=== PATIENT | female | born 1945 | race Caucasian/White ===

== ENCOUNTER 2022-02-07 11:15 | Inpatient (IN) | payer MEDICARE ==
[~2022-02-07] VITALS: Ht 172.7 cm; Wt 95.0 kg
[~2022-02-07 11:15] MED LIST: ALOG1TAB PO; DULO60CA65 PO; GLIM2TAB6 PO; INSU100I29 SQ; MELO-102 PO; OXYB5TAB16 PO; ROSU10TA2 PO; THY60T PO; WEL625T PO
[2022-02-07] MEDS ORDERED: Insulin Reg/NS 100units/100mL 100 ML IV PRN (11:30)
[2022-02-07] MEDS ORDERED: normal saline 1000ml 1,000 ML IV ONE ×3 (11:30→13:15)
[2022-02-07] MEDS ORDERED: LIDOcaine 2% 10ml TOPICAL JELLY (Urojet) TP ONE (11:40)
[2022-02-07] MEDS ORDERED: LISI5TAB22 PO (11:45)
[2022-02-07] MEDS ORDERED: LANTUS SQ (11:45)
[2022-02-07] MEDS ORDERED: GABA-530 PO (11:45)
[2022-02-07] MEDS ORDERED: OXCA150T14 PO (11:45)
[2022-02-07] MEDS ORDERED: COLE625T13 PO (11:45)
[2022-02-07] MEDS ORDERED: ONDA8TAB13 SL (11:45)
[2022-02-07] MEDS ORDERED: DULO60CA65 PO (11:45)
[2022-02-07] MEDS ORDERED: GLIM4TAB7 PO (11:45)
[2022-02-07] MEDS ORDERED: THYR30TA2 PO (11:45)
[2022-02-07] MEDS ORDERED: ROSU40TA22 PO (11:45)
[2022-02-07] MEDS ORDERED: INSU100I8 SQ (11:45)
[2022-02-07 12:37] LABS: CLARITY,URINE TURBID (Clear); COLOR,URINE YELLOW (Yellow); GLUCOSE, URINE >=1000 mg/dl (Neg); KETONES,URINE >=80 mg/dl (Neg); LEUKOCYTE ESTERASE ,URINE SMALL (Neg); NITRITES, URINE NEGATIVE (Neg); OCCULT BLOOD,URINE LARGE (Neg); PH,URINE 5.5 (4.8-8.0); PROTEIN,URINE 100 mg/dl (Neg); UROBILINOGEN,URINE 0.2 E.U/dL (0.2-1.0)
[2022-02-07 12:39] LABS: UA COLLECTION TYPE FOLEY CATH; URINE HCG NEGATIVE (NEG)
[2022-02-07 13:00] LABS: BASOPHILS # (AUTO) 0.1 X10'3 (0-0.2); MEAN PLATELET VOLUME 8.2 FL (7.4-10.4); MONOCYTES # (AUTO) 0.7 X10'3 (0-0.9)
[2022-02-07 13:01] LABS: BACTERIA,URINE FEW /HPF (Neg); MUCUS STRANDS NONE SEEN /LPF (Neg); SQUAMOUS EPITHELIAL CELL,UR NONE SEEN /LPF (FEW); WBC,URINE TNTC /HPF (0-4); YEAST MANY /HPF (NEGATIVE)
[2022-02-07 13:02] LABS: BASOPHILS % (AUTO) 0.5 % (0-1); EOSINOPHILS % (AUTO) 0.1 % (0-6); HEMATOCRIT 44.6 % (35.0-45.0); LYMPHOCYTES # (AUTO) 1.1 X10'3 (1.1-4.8); LYMPHOCYTES % (AUTO) 7.8 % (21-51); MEAN CORPUSCULAR HEMOGLOBIN 27.5 PG (27.0-31.0); MEAN CORPUSCULAR HGB CONC 31.4 g/dL (33.0-36.5); MEAN CORPUSCULAR VOLUME 87.6 FL (78-98); MONOCYTES % (AUTO) 4.9 % (2-12); NEUTROPHILS # (AUTO) 12.6 X10'3 (1.8-7.7); NEUTROPHILS % (AUTO) 86.7 % (42-75); PLATELET COUNT 740 X10'3 (140-440); RED CELL DISTRIBUTION WIDTH 14.5 % (11.5-14.5); WHITE BLOOD COUNT 14.5 X10'3 (4.5-11.0)
[2022-02-07 13:07] LABS: ALBUMIN 2.7 G/DL (3.4-5.0); ANION GAP 29 (8-16); BILIRUBIN,TOTAL 0.4 MG/DL (0.1-1.0); BLOOD UREA NITROGEN 20 MG/DL (7-18); BUN/CREATININE RATIO 12.4 (6.6-38.0); CALCIUM 8.2 MG/DL (8.5-10.1); CHLORIDE 98 MMOL/L (99-107); CREATININE 1.61 MG/DL (0.40-0.90); SODIUM 135 MMOL/L (135-145); TOTAL PROTEIN 7.6 G/DL (6.4-8.2); eGFR 31 ML/MIN
[2022-02-07 13:08] LABS: ALANINE AMINOTRANSFERASE 13 U/L (12-78); ALBUMIN/GLOBULIN RATIO 0.6 (1.1-1.5); ALKALINE PHOSPHATASE 138 IU/L (46-116); ASPARTATE AMINO TRANSFERASE 13 U/L (10-37); LIPASE 109 U/L (73-393)
[2022-02-07 13:09] LABS: GLUCOSE 459 MG/DL (70-104); TOTAL CARBON DIOXIDE 7.8 MMOL/L (24-32)
[2022-02-07] MEDS ORDERED: cefTRIAXone 1g/NS 100ml IVPB 100 ML IV ONE (13:15)
[2022-02-07] MEDS ORDERED: ondansetron/PF 4mg/2ml inj IV ONE (13:55)
[2022-02-07 13:58] LABS: ABG BASE EXCESS -21.6 mmol/L (-2.0-2.0); ABG HCO3 4.9 mmol/L (22.0-26.0); ABG OXYGEN SATURATION 98.1 % (94-97); ABG PCO2 (T) 14.2 mmHg (32.0-45.0); ABG PO2 (T) 119.6 mmHg (75.0-100.0); ALLEN'S TEST POSITIVE; FCOHb 0.3 % (0.0-3.9); FMetHb 0.3 % (0.0-1.5); FO2Hb 97.5 % (94-97); PATIENT TEMPERATURE 36.4; TOTAL HEMOGLOBIN 13.7 G/dl (12.0-16.0)
[2022-02-07] MEDS ORDERED: morphine 4 MG/ML inj SYRINge IV ONE (14:00)
--- NOTE | 2022-02-07 14:19 | NUR ---
RECEPTION AT BEDSIDE. CALL LIGHT WITHIN REACH.
[2022-02-07] MEDS ORDERED: insulin regular, human U-100 3ml vial - multi-dose IV PRN (14:25)
[2022-02-07] MEDS ORDERED: potassium Cl 20 mEq SR tablet PO PRN ×3 (14:25→14:30)
[2022-02-07] MEDS ORDERED: Neutra Phos packet PO PRN ×2 (14:25→14:30)
[2022-02-07] MEDS ORDERED: sodium bicarbonate (8.4%) inj. 50 MEQ in dextrose 5% water 500ml 250 ML IV PRN (14:25)
[2022-02-07] MEDS ORDERED: potassium CL 20mEq in D5-1/2NS 1,000 ML IV PRN (14:25)
[2022-02-07] MEDS ORDERED: Insulin Reg/NS 100units/100mL 100 ML IV SCH (14:25)
[2022-02-07] MEDS ORDERED: potassium Cl 40MEQ/1/2NS 520ml 520 ML IV PRN ×2 (14:25)
[2022-02-07] MEDS ORDERED: sodium phosphate inj. 30 MMOL in dextrose 5%-water 250 ML IV PRN ×2 (14:25→14:30)
[2022-02-07] MEDS ORDERED: sodium phosphate inj. 15 MMOL in dextrose 5%-water 250 ML IV PRN ×2 (14:25→14:30)
[2022-02-07] MEDS ORDERED: sodium bicarbonate (8.4%) inj. 100 MEQ in dextrose 5% water 500ml 500 ML IV PRN (14:25)
[2022-02-07] MEDS ORDERED: acetaminophen 650mg rectal suppository RC PRN (14:30)
[2022-02-07] MEDS ORDERED: magnesium 2GM in 50ml NS 50 ML IV PRN (14:30)
[2022-02-07] MEDS ORDERED: albuterol 2.5 MG/3 ML nebule NEB PRN (14:30)
[2022-02-07] MEDS ORDERED: acetaminophen 325mg tablet PO PRN (14:30)
[2022-02-07] MEDS ORDERED: magnesium 4gm in 100ml NS 100 ML IV PRN (14:30)
[2022-02-07] MEDS ORDERED: magnesium hydroxide 30ml (MOM) UD suspension PO PRN (14:30)
[2022-02-07] MEDS ORDERED: potassium CL 10mEq/100ml bag 100 ML IV PRN (14:30)
[2022-02-07] MEDS: normal saline 1000ml 1,000 ML IV SCH ×3 (14:37→22:02)
[2022-02-07] MEDS: K and/or MAG REPLACEMENT MC SCH (15:00)
[2022-02-07 15:27] LABS: ALBUMIN 2.6 G/DL (3.4-5.0); ANION GAP 27 (8-16); BLOOD UREA NITROGEN 21 MG/DL (7-18); BUN/CREATININE RATIO 13.7 (6.6-38.0); CALCIUM 8.5 MG/DL (8.5-10.1); CHLORIDE 104 MMOL/L (99-107); CREATININE 1.53 MG/DL (0.40-0.90); GLUCOSE 241 MG/DL (70-104); PHOSPHORUS 3.7 MG/DL (2.3-4.5); SODIUM 140 MMOL/L (135-145); eGFR 33 ML/MIN
[2022-02-07 15:28] LABS: TOTAL CARBON DIOXIDE 8.7 MMOL/L (24-32)
[2022-02-07] MEDS: potassium CL 20mEq in D5-1/2NS 1,000 ML IV SCH ×3 (15:43→21:07)
--- NOTE | 2022-02-07 15:45 | NUR ---
Changed IVF per protocol to D5 1/2NS with 20mEq KCL @250ml/hr.
[2022-02-07 16:52] LABS: ALBUMIN 2.4 G/DL (3.4-5.0); ANION GAP 23 (8-16); BLOOD UREA NITROGEN 20 MG/DL (7-18); BUN/CREATININE RATIO 13.2 (6.6-38.0); CALCIUM 8.3 MG/DL (8.5-10.1); CHLORIDE 107 MMOL/L (99-107); CREATININE 1.52 MG/DL (0.40-0.90); GLUCOSE 200 MG/DL (70-104); PHOSPHORUS 3.3 MG/DL (2.3-4.5); POTASSIUM 3.5 MMOL/L (3.5-5.1); SODIUM 140 MMOL/L (135-145); eGFR 33 ML/MIN
[2022-02-07 16:54] LABS: TOTAL CARBON DIOXIDE 10.5 MMOL/L (24-32)
[2022-02-07 19:07] LABS: ALBUMIN 2.1 G/DL (3.4-5.0); ANION GAP 25 (8-16); BLOOD UREA NITROGEN 18 MG/DL (7-18); BUN/CREATININE RATIO 12.8 (6.6-38.0); CALCIUM 7.6 MG/DL (8.5-10.1); CHLORIDE 109 MMOL/L (99-107); CREATININE 1.41 MG/DL (0.40-0.90); GLUCOSE 169 MG/DL (70-104); SODIUM 142 MMOL/L (135-145); eGFR 36 ML/MIN
[2022-02-07 19:09] LABS: POTASSIUM 4.3 MMOL/L (3.5-5.1)
[2022-02-07 19:12] LABS: TOTAL CARBON DIOXIDE 8.1 MMOL/L (24-32)
[2022-02-07] MEDS: heparin, porcine 5000 units/ml vial SQ SCH (19:56)
[2022-02-07] MEDS: docusate sod 100mg capsule PO SCH (19:56)
[2022-02-07] MEDS ORDERED: K and/or MAG REPLACEMENT MC SCH (20:00)
[2022-02-07] MEDS ORDERED: famotidine/PF 10 mg/ml inj IV SCH (20:00)
[2022-02-07] MEDS: acetaminophen 325mg tablet PO PRN (20:03)
--- NOTE | 2022-02-07 20:07 | NUR ---
Pt pink, alert, no acute/resp distress. PIV sites c/d/i s complication or adverse reaction. Pt supine, moves self PRN for comfort.
[2022-02-07] MEDS ORDERED: sodium bicarbonate (8.4%) 1 mEq/ml syringe IV ONE (20:35)
--- NOTE | 2022-02-07 20:51 | NUR ---
VOR DR MANCIA, 2 AMPS SODIUM BICARB PIV NOW, DRAW ABG, CALL THE FINISHER MACHINE ONSITE CASE MANAGER WITH RESULTS OF ABG, DR IGNACIO. VOR DR IGNACIO, DO NOT GIVE 2 AMPS SODIUM BICARBONATE. DO REDRAW CMP AND ABG NOW AND CALL WITH RESULTS. IF GLUCOSE READING DROPS FROM THE PREVIOUS 165MG/DL LOWER INSULIN DRIP DOWN TO 3 UNITS PER HOUR.
[2022-02-07 21:11] LABS: ABG BASE EXCESS -12.9 mmol/L (-2.0-2.0); ABG HCO3 12.1 mmol/L (22.0-26.0); ABG OXYGEN SATURATION 97.8 % (94-97); ABG PCO2 (T) 25.7 mmHg (32.0-45.0); ABG PO2 (T) 107.1 mmHg (75.0-100.0); FCOHb 0.3 % (0.0-3.9); FMetHb 0.2 % (0.0-1.5); FO2Hb 97.3 % (94-97)
--- NOTE | 2022-02-07 21:14 | NUR ---
ABG DRAWN BY RT, PT JANELLE WELL, REMAINED PINK. CMP DRAWN BY LAB, PT JANELLE. WELL REMAINED PINK. PIV SITES C/D/I S COMPLICATION.
[2022-02-07 21:35] LABS: ALANINE AMINOTRANSFERASE 8 U/L (12-78); ALBUMIN 1.9 G/DL (3.4-5.0); ALBUMIN/GLOBULIN RATIO 0.5 (1.1-1.5); ALKALINE PHOSPHATASE 95 IU/L (46-116); ANION GAP 20 (8-16); ASPARTATE AMINO TRANSFERASE 11 U/L (10-37); BILIRUBIN,TOTAL 0.3 MG/DL (0.1-1.0); BLOOD UREA NITROGEN 16 MG/DL (7-18); CALCIUM 6.5 MG/DL (8.5-10.1); CHLORIDE 110 MMOL/L (99-107); CREATININE 1.23 MG/DL (0.40-0.90); GLUCOSE 186 MG/DL (70-104); POTASSIUM 3.4 MMOL/L (3.5-5.1); SODIUM 141 MMOL/L (135-145); TOTAL PROTEIN 5.6 G/DL (6.4-8.2); eGFR 42 ML/MIN
[2022-02-07] MEDS ORDERED: ketorolac trometh. 30mg/ml inj. IV ONE (21:50)
--- NOTE | 2022-02-07 21:52 | NUR ---
VORB Dr Davis, Toradol 30mg PIV now for headache. Keep Insulin at 5u/hr. No further orders at this time.
--- NOTE | 2022-02-07 23:06 | NUR ---
Pt states SUTTON has resolved after toradol given. PIV sites c/d/i s complication. Pt denies nausea, or other adverse side effects. Bed in the lowest position, rail 2/2 up and locked, wheels locked, call lin in reach.
[2022-02-08] MEDS: potassium CL 20mEq in D5-1/2NS 1,000 ML IV SCH ×3 (02:16→07:46)
--- NOTE | 2022-02-08 02:30 | NUR ---
Insulin lowered from 5 to 3 units per hour with down trending glucose of [address] Davis.
--- NOTE | 2022-02-08 03:19 | NUR ---
20 PIV left upper arm not infusing. PIV d/c fully intact. 22G PIV started right forearm x 2 attempts. Flushed well with 10ccNS s complication. IVF infusing well s complication.
--- NOTE | 2022-02-08 03:58 | NUR ---
ANETA Davis, continue insulin drip at 3 units per hour, send a CMP now. May reduce insulin to 1 unit per hour if glucose continues to fall. Keep D51/2NS with 20meq KCL running at 250cc/hr.
[2022-02-08] MEDS: normal saline 1000ml 1,000 ML IV SCH ×2 (04:10→05:50)
--- NOTE | 2022-02-08 04:19 | NUR ---
Pt pink, alert, eating sugar free orange jello. PIV sites, both right arm, c/d/i s complication or adverse. Bed in lowest position, rail 2/2 up, call lin in reach, wheels locked. Pt. laying supine, pt able to reposition prn.
[2022-02-08 04:21] LABS: ALANINE AMINOTRANSFERASE 11 U/L (12-78); ALBUMIN/GLOBULIN RATIO 0.5 (1.1-1.5); ALKALINE PHOSPHATASE 95 IU/L (46-116); ANION GAP 10 (8-16); ASPARTATE AMINO TRANSFERASE 13 U/L (10-37); BILIRUBIN,TOTAL 0.2 MG/DL (0.1-1.0); BLOOD UREA NITROGEN 14 MG/DL (7-18); BUN/CREATININE RATIO 10.4 (6.6-38.0); CALCIUM 7.2 MG/DL (8.5-10.1); CHLORIDE 110 MMOL/L (99-107); CREATININE 1.35 MG/DL (0.40-0.90); GLUCOSE 106 MG/DL (70-104); MAGNESIUM 1.4 MG/DL (1.5-2.4); PHOSPHORUS 2.5 MG/DL (2.3-4.5); POTASSIUM 3.5 MMOL/L (3.5-5.1); SODIUM 139 MMOL/L (135-145); TOTAL CARBON DIOXIDE 18.6 MMOL/L (24-32); TOTAL PROTEIN 5.8 G/DL (6.4-8.2); eGFR 38 ML/MIN
--- NOTE | 2022-02-08 05:51 | NUR ---
Pt pink, alert, no acute/resp distress. PIV sites c/d/i s complication or adverse reaction. Pt supine, moves self PRN for comfort. Bed in lowest position, wheels locked, rail 2/2 up, call lin in reach. Handoff report to dayshift RN
--- NOTE | 2022-02-08 07:15 | NUR ---
Hop Worker called with plan to check CMP; give glargine insulin; reassess after results of CMP.
--- NOTE | 2022-02-08 07:25 | NUR ---
Telemedicine monitor placed at bedside per rfid engineer request.
[2022-02-08 07:40] LABS: ALANINE AMINOTRANSFERASE 10 U/L (12-78); ALBUMIN 1.7 G/DL (3.4-5.0); ALBUMIN/GLOBULIN RATIO 0.5 (1.1-1.5); ALKALINE PHOSPHATASE 81 IU/L (46-116); ANION GAP 7 (8-16); ASPARTATE AMINO TRANSFERASE 12 U/L (10-37); BILIRUBIN,TOTAL 0.2 MG/DL (0.1-1.0); BLOOD UREA NITROGEN 13 MG/DL (7-18); BUN/CREATININE RATIO 10.2 (6.6-38.0); CALCIUM 7.1 MG/DL (8.5-10.1); CHLORIDE 112 MMOL/L (99-107); CREATININE 1.27 MG/DL (0.40-0.90); GLUCOSE 123 MG/DL (70-104); POTASSIUM 3.6 MMOL/L (3.5-5.1); SODIUM 137 MMOL/L (135-145); TOTAL CARBON DIOXIDE 17.9 MMOL/L (24-32); TOTAL PROTEIN 5.1 G/DL (6.4-8.2); eGFR 41 ML/MIN
--- NOTE | 2022-02-08 07:54 | NUR ---
Confirmed with patient, she no longer has allergy to glargine insulin/Lantus; confirmed with pharmacist. Per pharmacist, insulin drip will be discontinued at 0900 today.
[2022-02-08] MEDS ORDERED: glucagon, human recombinant 1mg kit SUBCUT PRN (08:00)
[2022-02-08] MEDS ORDERED: DEXTROSE 15 GM of carb/4 tabs (each vial/BOTTLE has 4 tablets) PO PRN ×2 (08:00)
[2022-02-08] MEDS ORDERED: dextrose 50%-water 50ml dispensing syringe IV PRN ×2 (08:00)
[2022-02-08] MEDS: K and/or MAG REPLACEMENT MC SCH (08:00)
[2022-02-08] MEDS: insulin glargine (Lantus) pen - multi-dose SQ SCH (08:11)
[2022-02-08] MEDS: ondansetron/PF 4mg/2ml inj IV PRN ×2 (08:17→14:35)
[2022-02-08] MEDS: cefTRIAXone 1g/NS 100ml IVPB 100 ML IV SCH (09:00)
[2022-02-08] MEDS: docusate sod 100mg capsule PO SCH ×2 (10:37→20:38)
[2022-02-08] MEDS: heparin, porcine 5000 units/ml vial SQ SCH ×2 (10:37→20:38)
--- NOTE | 2022-02-08 12:44 | NUR ---
Spoke with patient's son, Nathan; update given. Patient gave consent to speak with family members regarding her healthcare.
[2022-02-08] MEDS: insulin Lispro (HumaLOG) vial - multi-dose SQ SCH ×3 (13:27→21:57)
[2022-02-08 14:02] LABS: BASOPHILS % (AUTO) 0.5 % (0-1); EOSINOPHILS # (AUTO) 0.4 X10'3 (0-0.9); EOSINOPHILS % (AUTO) 4.8 % (0-6); HEMATOCRIT 43.5 % (35.0-45.0); HEMOGLOBIN 13.9 g/dl (12.0-16.0); LYMPHOCYTES # (AUTO) 1.4 X10'3 (1.1-4.8); LYMPHOCYTES % (AUTO) 18.3 % (21-51); MEAN CORPUSCULAR HEMOGLOBIN 28.2 PG (27.0-31.0); MEAN CORPUSCULAR HGB CONC 32.1 g/dL (33.0-36.5); MEAN PLATELET VOLUME 7.4 FL (7.4-10.4); MONOCYTES # (AUTO) 0.6 X10'3 (0-0.9); MONOCYTES % (AUTO) 8.4 % (2-12); PLATELET COUNT 430 X10'3 (140-440); RED BLOOD COUNT 4.94 X10'6 (4.20-5.60); RED CELL DISTRIBUTION WIDTH 14.7 % (11.5-14.5); WHITE BLOOD COUNT 7.4 X10'3 (4.5-11.0)
[2022-02-08] MEDS: acetaminophen 325mg tablet PO PRN ×2 (14:36→18:48)
--- NOTE | 2022-02-08 15:33 | NUR ---
RELIEVING RN FOR BREAK, PT IS SLEEPING QUIETLY ON BED, RESP EVEN AND UNLABORED, WAITING FOR BED ASSIGNMENT UPSTAIRS
[2022-02-08 17:29] VITALS: BP 154/69
[2022-02-08 18:00] VITALS: BP 155/73
[2022-02-08 22:00] VITALS: BP 113/41
[2022-02-09] MEDS: ondansetron/PF 4mg/2ml inj IV PRN ×4 (01:05→23:35)
[2022-02-09] MEDS: acetaminophen 325mg tablet PO PRN (01:05)
[2022-02-09 02:00] VITALS: BP 152/59
[2022-02-09 06:46] LABS: BASOPHILS % (AUTO) 0.2 % (0-1); EOSINOPHILS # (AUTO) 0.4 X10'3 (0-0.9); EOSINOPHILS % (AUTO) 6.3 % (0-6); HEMATOCRIT 32.2 % (35.0-45.0); HEMOGLOBIN 10.8 g/dl (12.0-16.0); LYMPHOCYTES # (AUTO) 1.8 X10'3 (1.1-4.8); LYMPHOCYTES % (AUTO) 30.1 % (21-51); MEAN CORPUSCULAR HEMOGLOBIN 28.4 PG (27.0-31.0); MEAN CORPUSCULAR HGB CONC 33.5 g/dL (33.0-36.5); MEAN CORPUSCULAR VOLUME 84.9 FL (78-98); MEAN PLATELET VOLUME 7.4 FL (7.4-10.4); MONOCYTES # (AUTO) 0.6 X10'3 (0-0.9); MONOCYTES % (AUTO) 9.8 % (2-12); NEUTROPHILS # (AUTO) 3.2 X10'3 (1.8-7.7); NEUTROPHILS % (AUTO) 53.6 % (42-75); PLATELET COUNT 416 X10'3 (140-440); RED BLOOD COUNT 3.79 X10'6 (4.20-5.60); RED CELL DISTRIBUTION WIDTH 14.3 % (11.5-14.5)
--- NOTE | 2022-02-09 06:58 | NUR ---
Verified pt is to receive both doses of insulin with pharmacist
[2022-02-09 06:59] LABS: MAGNESIUM 2.2 MG/DL (1.5-2.4); POTASSIUM 3.8 MMOL/L (3.5-5.1)
[2022-02-09] MEDS: cefTRIAXone 1g/NS 100ml IVPB 100 ML IV SCH (07:18)
[2022-02-09] MEDS: heparin, porcine 5000 units/ml vial SQ SCH ×2 (07:19→20:04)
[2022-02-09] MEDS: K and/or MAG REPLACEMENT MC SCH (07:19)
[2022-02-09] MEDS: docusate sod 100mg capsule PO SCH ×2 (07:19→20:04)
[2022-02-09] MEDS: insulin glargine (Lantus) pen - multi-dose SQ SCH (08:46)
[2022-02-09] MEDS: insulin Lispro (HumaLOG) vial - multi-dose SQ SCH ×3 (08:49→20:53)
--- NOTE | 2022-02-09 09:25 | NUR ---
Malnutrition/DM consult: Pt admitted w/ DKA and UTI per EMR. A1c currently pending. Pt has reportedly had some nausea and vomiting for the past 3 days and unable to keep food down. Currently on Carb controlled diet w/ 100% intake of first meal, receiving PRN zofran. Pt denies recent wt loss and no signs of muscle or fat wasting observed at bedside. Noted w/ BLE trace edema. At this time pt does not meet minimum criteria for malnutrition. Will continue to monitor. Recs: 1. Continue Carb control diet as tolerated 2. Bowel care per rx 3. Weekly wts 4. Monitor need for DM ed pending A1c Addendum: 02/09/22 at [address]26 [address]rique [address] RD Amended: Links added.
[2022-02-09 09:56] VITALS: BP 156/82
[2022-02-09 12:15] VITALS: BP 140/62
[2022-02-09 12:23] LABS: ALBUMIN 1.8 G/DL (3.4-5.0); ANION GAP 13 (8-16); BLOOD UREA NITROGEN 11 MG/DL (7-18); CHLORIDE 111 MMOL/L (99-107); CREATININE 1.37 MG/DL (0.40-0.90); GLUCOSE 311 MG/DL (70-104); SODIUM 140 MMOL/L (135-145); TOTAL CARBON DIOXIDE 16.5 MMOL/L (24-32); eGFR 37 ML/MIN
[2022-02-09] MEDS ORDERED: heparin, porcine 5000 units/ml vial SQ SCH (12:55)
[2022-02-09] MEDS: gabapentin 100mg capsule PO SCH ×2 (13:00→20:58)
[2022-02-09 13:24] LABS: CHOL/HDL RATIO 2.8 (0.00-4.99); CHOLESTEROL 146 MG/DL (0-200); HDL CHOLESTEROL 53 MG/DL (35-60); LDL CHOLESTEROL 70 MG/DL (50-100); TRIGLYCERIDES 176 MG/DL (20-135)
[2022-02-09] MEDS: sodium bicarbonate (8.4%) inj. 100 MEQ in sodium chloride 0.45% 1,000 ML IV SCH ×2 (13:26→23:35)
[2022-02-09 15:36] VITALS: BP 147/54
--- NOTE | 2022-02-09 16:35 | NUR ---
dc'D F/C. pT. TOLERATED WELL. eXTENSIVE PERICARE PROVIDED. pT EDUCATED ON HOW TO WIPE AND PERSONAL HYGIENE HABITS WHICH SHE WAS RECEPTIVE TO. 1000ML CLOUDY YELLOW OUTPUT.
--- NOTE | 2022-02-09 18:32 | NUR ---
Gave report to Eliseo XAVIER.
[2022-02-09 19:15] VITALS: BP 161/68
[2022-02-09] MEDS: oxcarbazepine 150mg tablet PO SCH (20:04)
[2022-02-10 06:00] VITALS: BP 129/43
[2022-02-10 06:07] LABS: BASOPHILS # (AUTO) 0.1 X10'3 (0-0.2); BASOPHILS % (AUTO) 0.8 % (0-1); EOSINOPHILS # (AUTO) 0.1 X10'3 (0-0.9); EOSINOPHILS % (AUTO) 1.9 % (0-6); HEMATOCRIT 29.6 % (35.0-45.0); LYMPHOCYTES # (AUTO) 2.3 X10'3 (1.1-4.8); LYMPHOCYTES % (AUTO) 29.8 % (21-51); MEAN CORPUSCULAR HGB CONC 33.8 g/dL (33.0-36.5); MEAN CORPUSCULAR VOLUME 82.9 FL (78-98); MEAN PLATELET VOLUME 7.5 FL (7.4-10.4); MONOCYTES # (AUTO) 0.7 X10'3 (0-0.9); MONOCYTES % (AUTO) 8.9 % (2-12); NEUTROPHILS # (AUTO) 4.5 X10'3 (1.8-7.7); NEUTROPHILS % (AUTO) 58.6 % (42-75); PLATELET COUNT 429 X10'3 (140-440); RED BLOOD COUNT 3.57 X10'6 (4.20-5.60); RED CELL DISTRIBUTION WIDTH 14.2 % (11.5-14.5); WHITE BLOOD COUNT 7.6 X10'3 (4.5-11.0)
[2022-02-10 06:24] LABS: MAGNESIUM 1.8 MG/DL (1.5-2.4)
--- NOTE | 2022-02-10 06:53 | NUR ---
Problems reprioritized. Patient report given, questions answered & plan of care reviewed with RAFFY. Addendum: 02/10/22 at 0653 by Gino Ramos RN Amended: Links added.
[2022-02-10] MEDS: gabapentin 100mg capsule PO SCH ×3 (07:49→21:00)
[2022-02-10] MEDS: colesevelam 625mg tablet PO SCH (07:50)
[2022-02-10] MEDS: duloxetine 30mg CAPSULE.DR PO SCH (07:50)
[2022-02-10] MEDS: atorvastatin 20mg tablet PO SCH (07:50)
[2022-02-10] MEDS: docusate sod 100mg capsule PO SCH ×2 (07:50→21:06)
[2022-02-10] MEDS: thyroid, pork 30mg tablet PO SCH (07:50)
[2022-02-10] MEDS: heparin, porcine 5000 units/ml vial SQ SCH ×2 (07:51→21:07)
[2022-02-10] MEDS: oxybutynin 5mg tablet PO SCH (07:51)
[2022-02-10] MEDS: pantoprazole 40mg Tablet.DR PO SCH (07:51)
[2022-02-10] MEDS: cefTRIAXone 1g/NS 100ml IVPB 100 ML IV SCH (07:52)
[2022-02-10] MEDS: potassium Cl 20 mEq SR tablet PO PRN ×2 (07:54→11:06)
[2022-02-10] MEDS: oxcarbazepine 150mg tablet PO SCH ×2 (08:00→21:06)
[2022-02-10] MEDS: lisinopril 5mg tablet PO SCH (08:13)
[2022-02-10] MEDS: insulin Lispro (HumaLOG) vial - multi-dose SQ SCH ×3 (08:29→21:23)
[2022-02-10] MEDS: insulin glargine (Lantus) pen - multi-dose SQ SCH (08:32)
[2022-02-10] MEDS ORDERED: metoclopramide 5 mg/ml inj IV PRN (10:45)
[2022-02-10 11:00] VITALS: BP 132/49
[2022-02-10 12:21] LABS: ALBUMIN 1.7 G/DL (3.4-5.0); BLOOD UREA NITROGEN 10 MG/DL (7-18); BUN/CREATININE RATIO 7.6 (6.6-38.0); CALCIUM 7.7 MG/DL (8.5-10.1); CREATININE 1.31 MG/DL (0.40-0.90); GLUCOSE 136 MG/DL (70-104); TOTAL CARBON DIOXIDE 21.5 MMOL/L (24-32); eGFR 39 ML/MIN
[2022-02-10 13:07] LABS: ANION GAP 12 (8-16); CHLORIDE 108 MMOL/L (99-107); SODIUM 141 MMOL/L (135-145)
--- NOTE | 2022-02-10 13:29 | NUR ---
f/u 02/10: Noted A1c "above assay range." TC to Lab to clarify, they state it likely means the value is greater than 14, though was not able to get a clear answer. Provided pt w/ written and verbal DM ed w/ RD contact information. Addendum: 02/10/22 at [address] Amended: Links added.
[2022-02-10 15:00] VITALS: BP 103/65
[2022-02-10 19:30] VITALS: BP 113/46
[2022-02-10] MEDS: K and/or MAG REPLACEMENT MC SCH (21:02)
[2022-02-11 06:00] VITALS: BP 133/57
--- NOTE | 2022-02-11 06:10 | NUR ---
Problems reprioritized. Patient report given, questions answered & plan of care reviewed with RAFFY. Addendum: 02/11/22 at 0610 by Gino Ramos RN Amended: Links added.
[2022-02-11] MEDS: cefTRIAXone 1g/NS 100ml IVPB 100 ML IV SCH (07:54)
[2022-02-11] MEDS: docusate sod 100mg capsule PO SCH (07:54)
[2022-02-11] MEDS: atorvastatin 20mg tablet PO SCH (07:54)
[2022-02-11] MEDS: heparin, porcine 5000 units/ml vial SQ SCH (07:55)
[2022-02-11] MEDS: duloxetine 30mg CAPSULE.DR PO SCH (07:55)
[2022-02-11] MEDS: lisinopril 5mg tablet PO SCH (07:55)
[2022-02-11] MEDS: colesevelam 625mg tablet PO SCH (07:56)
[2022-02-11] MEDS: oxcarbazepine 150mg tablet PO SCH (07:56)
[2022-02-11] MEDS: gabapentin 100mg capsule PO SCH (07:56)
[2022-02-11] MEDS: pantoprazole 40mg Tablet.DR PO SCH (08:02)
[2022-02-11] MEDS: oxybutynin 5mg tablet PO SCH (08:02)
[2022-02-11 08:10] LABS: BASOPHILS # (AUTO) 0.1 X10'3 (0-0.2); EOSINOPHILS # (AUTO) 0.2 X10'3 (0-0.9); EOSINOPHILS % (AUTO) 3.5 % (0-6); HEMATOCRIT 30.1 % (35.0-45.0); LYMPHOCYTES # (AUTO) 2.2 X10'3 (1.1-4.8); LYMPHOCYTES % (AUTO) 33.8 % (21-51); MEAN CORPUSCULAR HGB CONC 33.3 g/dL (33.0-36.5); MEAN CORPUSCULAR VOLUME 84.1 FL (78-98); MEAN PLATELET VOLUME 7.9 FL (7.4-10.4); MONOCYTES # (AUTO) 0.8 X10'3 (0-0.9); MONOCYTES % (AUTO) 12.2 % (2-12); NEUTROPHILS # (AUTO) 3.2 X10'3 (1.8-7.7); NEUTROPHILS % (AUTO) 49.5 % (42-75); PLATELET COUNT 389 X10'3 (140-440); RED BLOOD COUNT 3.58 X10'6 (4.20-5.60); WHITE BLOOD COUNT 6.5 X10'3 (4.5-11.0)
[2022-02-11 08:16] LABS: ALANINE AMINOTRANSFERASE 14 U/L (12-78); ALBUMIN 1.7 G/DL (3.4-5.0); ALBUMIN/GLOBULIN RATIO 0.5 (1.1-1.5); ALKALINE PHOSPHATASE 86 IU/L (46-116); ANION GAP 7 (8-16); ASPARTATE AMINO TRANSFERASE 22 U/L (10-37); BILIRUBIN,TOTAL 0.4 MG/DL (0.1-1.0); BLOOD UREA NITROGEN 8 MG/DL (7-18); CALCIUM 7.8 MG/DL (8.5-10.1); CHLORIDE 106 MMOL/L (99-107); GLUCOSE 204 MG/DL (70-104); MAGNESIUM 1.8 MG/DL (1.5-2.4); PHOSPHORUS 2.2 MG/DL (2.3-4.5); POTASSIUM 4.5 MMOL/L (3.5-5.1); SODIUM 140 MMOL/L (135-145); TOTAL CARBON DIOXIDE 27.3 MMOL/L (24-32); TOTAL PROTEIN 5.1 G/DL (6.4-8.2); eGFR 54 ML/MIN
[2022-02-11] MEDS: insulin glargine (Lantus) pen - multi-dose SQ SCH (08:16)
[2022-02-11] MEDS: insulin Lispro (HumaLOG) vial - multi-dose SQ SCH (08:51)
[2022-02-11] MEDS: thyroid, pork 30mg tablet PO SCH (09:37)
[2022-02-11 11:00] VITALS: BP 116/54
--- NOTE | 2022-02-11 11:16 | NUR ---
CALLED RE[facility] DÍAZ AND GAVE REPORT TO RN AT 1115.
== END 2022-02-11 12:05 | DRG 73 ==
LOC: ER 11:15 → ED HOLD 14:37 → EDBEDREQ 02-08 15:58 → PCU 3S 02-08 16:58
PROVIDERS: ADMIT Internal Medicine Nephrology; ATTEND Internal Medicine Nephrology
DX: E10.43 Type 1 diabetes mellitus with diabetic autonomic (poly)neuropathy (principal); N17.0 Acute kidney failure with tubular necrosis; N39.0 Urinary tract infection, site not specified; K31.84 Gastroparesis; E10.10 Type 1 diabetes mellitus with ketoacidosis without coma; E03.9 Hypothyroidism, unspecified; E86.0 Dehydration; N18.9 Chronic kidney disease, unspecified; I12.9 Hypertensive chronic kidney disease with stage 1 through stage 4 chronic kidney disease, or unspecified chronic kidney disease; F41.8 Other specified anxiety disorders; E10.22 Type 1 diabetes mellitus with diabetic chronic kidney disease; E78.5 Hyperlipidemia, unspecified; Z20.822 Contact with and (suspected) exposure to COVID-19; D64.9 Anemia, unspecified; Z82.49 Family history of ischemic heart disease and other diseases of the circulatory system; Z83.3 Family history of diabetes mellitus; Z88.8 Allergy status to other drugs, medicaments and biological substances; Z79.899 Other long term (current) drug therapy; Z79.4 Long term (current) use of insulin; Z79.890 Hormone replacement therapy
CPT/HCPCS: 36415; 36600; 71045; 80048; 80053; 80061; 81001; 81025; 82803; 82948; 83605; 83690; 83735; 84100; 84132; 84145; 84443; 85018; 85025; 87040; 87088; 87635; 93005; 94760; 96365; 96366; 96367; 96375; 97110; 97116; 97162; 99285; G0378; J0696; J1644; J1815; J1885; J2270; J2405; J2765; J3480; J3490; J7030

== ENCOUNTER 2022-03-08 08:53 | Emergency (ER) | payer MEDICARE ==
[~2022-03-08] VITALS: Ht 172.7 cm; Wt 88.2 kg
[~2022-03-08 08:53] MED LIST changes: +COLE625T13 PO; +GABA-530 PO; -GLIM2TAB6 PO; +GLIM4TAB7 PO; -INSU100I29 SQ; +INSU100I8 SQ; +LANTUS SQ; +LISI5TAB22 PO; -MELO-102 PO; +ONDA8TAB13 SL; +OXCA150T14 PO; -ROSU10TA2 PO; +ROSU40TA22 PO; -THY60T PO; +THYR30TA2 PO; -WEL625T PO
[2022-03-08 09:09] VITALS: BP 107/55
== END 2022-03-08 10:10 | disposition home or self-care (01) ==
LOC: ER 08:54
DX: E11.65 Type 2 diabetes mellitus with hyperglycemia (principal); R00.0 Tachycardia, unspecified; Z88.1 Allergy status to other antibiotic agents; Z88.8 Allergy status to other drugs, medicaments and biological substances; Z79.4 Long term (current) use of insulin; Z79.899 Other long term (current) drug therapy
CPT/HCPCS: 82948; 99282

== ENCOUNTER 2022-04-26 18:07 | Emergency (ER) | payer MEDICARE ==
[~2022-04-26] VITALS: Ht 172.7 cm; Wt 88.2 kg
[2022-04-26 19:26] VITALS: BP 134/62
== END 2022-04-26 19:49 | disposition home or self-care (01) ==
LOC: ER 18:08
DX: E11.649 Type 2 diabetes mellitus with hypoglycemia without coma (principal); Z88.1 Allergy status to other antibiotic agents; Z88.8 Allergy status to other drugs, medicaments and biological substances; Z79.4 Long term (current) use of insulin; Z79.899 Other long term (current) drug therapy
CPT/HCPCS: 82948; 99283

== ENCOUNTER 2022-05-10 22:04 | Emergency (ER) | payer MEDICARE ==
[~2022-05-10] VITALS: Ht 172.7 cm; Wt 86.0 kg
[2022-05-10] MEDS ORDERED: dextrose 50%-water 50ml dispensing syringe IV ONE (22:27)
--- NOTE | 2022-05-10 23:18 | NUR ---
PT GIVEN SANDWICH TO IMPROVE BS LVLS.
[2022-05-11 00:24] VITALS: BP 153/69
== END 2022-05-11 00:25 | disposition home or self-care (01) ==
LOC: ER 22:05
DX: E16.1 Other hypoglycemia (principal); E11.9 Type 2 diabetes mellitus without complications; Z88.1 Allergy status to other antibiotic agents; Z88.5 Allergy status to narcotic agent; Z79.899 Other long term (current) drug therapy; Z79.84 Long term (current) use of oral hypoglycemic drugs
CPT/HCPCS: 82948; 96374; 99284; J3490

== ENCOUNTER 2022-09-16 03:36 | Emergency (ER) | payer MEDICARE ==
[~2022-09-16] VITALS: Ht 172.7 cm; Wt 79.1 kg
[2022-09-16 05:37] LABS: CLARITY,URINE SLIGHTLY CLOUDY (Clear); COLOR,URINE YELLOW (Yellow); GLUCOSE, URINE >=1000 mg/dl (Neg); KETONES,URINE NEGATIVE (Neg); LEUKOCYTE ESTERASE ,URINE NEGATIVE (Neg); NITRITES, URINE NEGATIVE (Neg); OCCULT BLOOD,URINE MODERATE (Neg); PROTEIN,URINE 100 mg/dl (Neg); UROBILINOGEN,URINE 0.2 E.U/dL (0.2-1.0)
[2022-09-16 05:43] LABS: UA COLLECTION TYPE STRAIGHT CATH
[2022-09-16 05:45] LABS: WBC,URINE TNTC /HPF (0-4)
[2022-09-16 05:46] LABS: WBC CLUMPS,URINE FEW /HPF (NEGATIVE)
[2022-09-16 05:47] LABS: BACTERIA,URINE FEW /HPF (Neg); MUCUS STRANDS NONE SEEN /LPF (Neg); SQUAMOUS EPITHELIAL CELL,UR FEW /LPF (FEW)
[2022-09-16 05:56] LABS: ALANINE AMINOTRANSFERASE 18 U/L (12-78); ALBUMIN 3.6 G/DL (3.4-5.0); ALBUMIN/GLOBULIN RATIO 0.8 (1.1-1.5); ALKALINE PHOSPHATASE 134 IU/L (46-116); ANION GAP 14 (8-16); ASPARTATE AMINO TRANSFERASE 20 U/L (10-37); BILIRUBIN,TOTAL 0.7 MG/DL (0.1-1.0); BLOOD UREA NITROGEN 21 MG/DL (7-18); BUN/CREATININE RATIO 15.3 (6.6-38.0); CALCIUM 9.4 MG/DL (8.5-10.1); CHLORIDE 99 MMOL/L (99-107); CREATININE 1.37 MG/DL (0.40-0.90); GLUCOSE 280 MG/DL (70-104); POTASSIUM 4.4 MMOL/L (3.5-5.1); SODIUM 135 MMOL/L (135-145); TOTAL CARBON DIOXIDE 22.1 MMOL/L (24-32); TOTAL PROTEIN 8.3 G/DL (6.4-8.2); eGFR 37 ML/MIN
[2022-09-16 05:59] LABS: LIPASE 69 U/L (73-393)
[2022-09-16 06:19] LABS: BASOPHILS # (AUTO) 0.1 X10'3 (0-0.2); BASOPHILS % (AUTO) 0.5 % (0-1); EOSINOPHILS % (AUTO) 0.1 % (0-6); HEMATOCRIT 46.1 % (35.0-45.0); HEMOGLOBIN 15.3 g/dl (12.0-16.0); LYMPHOCYTES # (AUTO) 1.5 X10'3 (1.1-4.8); LYMPHOCYTES % (AUTO) 11.1 % (21-51); MEAN CORPUSCULAR HEMOGLOBIN 28.1 PG (27.0-31.0); MEAN CORPUSCULAR HGB CONC 33.2 g/dL (33.0-36.5); MEAN CORPUSCULAR VOLUME 84.6 FL (78-98); MONOCYTES # (AUTO) 0.8 X10'3 (0-0.9); MONOCYTES % (AUTO) 5.7 % (2-12); NEUTROPHILS # (AUTO) 11.4 X10'3 (1.8-7.7); NEUTROPHILS % (AUTO) 82.6 % (42-75); PLATELET COUNT 463 X10'3 (140-440); RED BLOOD COUNT 5.45 X10'6 (4.20-5.60); RED CELL DISTRIBUTION WIDTH 14.2 % (11.5-14.5); WHITE BLOOD COUNT 13.8 X10'3 (4.5-11.0)
[2022-09-16] MEDS ORDERED: ondansetron 4mg rapidly disintigrating tab PO ONE (06:45)
[2022-09-16 07:22] VITALS: BP 123/62
== END 2022-09-16 08:27 | disposition home or self-care (01) ==
LOC: ER 03:36
DX: T83.098A Other mechanical complication of other urinary catheter, initial encounter (principal); N39.0 Urinary tract infection, site not specified; R33.9 Retention of urine, unspecified; E11.9 Type 2 diabetes mellitus without complications; Z88.1 Allergy status to other antibiotic agents; Z88.5 Allergy status to narcotic agent; Z79.899 Other long term (current) drug therapy; Z79.82 Long term (current) use of aspirin; Z79.1 Long term (current) use of non-steroidal anti-inflammatories (NSAID)
CPT/HCPCS: 36415; 71045; 80053; 81001; 82948; 83690; 84484; 85025; 87088; 93005; 99285

== ENCOUNTER 2022-09-30 18:56 | Emergency (ER) | payer MEDICARE ==
[~2022-09-30] VITALS: Ht 172.7 cm; Wt 80.0 kg
[2022-09-30] MEDS ORDERED: normal saline 1000ML IV soln IVB ONE (20:50)
[2022-09-30] MEDS ORDERED: ondansetron/PF 4mg/2ml inj IV ONE (20:50)
[2022-09-30 21:12] LABS: BASOPHILS # (AUTO) 0.1 X10'3 (0-0.2); BASOPHILS % (AUTO) 1.1 % (0-1); EOSINOPHILS # (AUTO) 0.1 X10'3 (0-0.9); EOSINOPHILS % (AUTO) 1.6 % (0-6); HEMATOCRIT 42.9 % (35.0-45.0); HEMOGLOBIN 14.5 g/dl (12.0-16.0); LYMPHOCYTES # (AUTO) 2.4 X10'3 (1.1-4.8); LYMPHOCYTES % (AUTO) 27.5 % (21-51); MEAN CORPUSCULAR HEMOGLOBIN 28.4 PG (27.0-31.0); MEAN CORPUSCULAR HGB CONC 33.7 g/dL (33.0-36.5); MEAN CORPUSCULAR VOLUME 84.3 FL (78-98); MEAN PLATELET VOLUME 7.6 FL (7.4-10.4); MONOCYTES # (AUTO) 0.7 X10'3 (0-0.9); MONOCYTES % (AUTO) 8.1 % (2-12); NEUTROPHILS # (AUTO) 5.3 X10'3 (1.8-7.7); NEUTROPHILS % (AUTO) 61.7 % (42-75); PLATELET COUNT 535 X10'3 (140-440); RED BLOOD COUNT 5.09 X10'6 (4.20-5.60); RED CELL DISTRIBUTION WIDTH 13.5 % (11.5-14.5); WHITE BLOOD COUNT 8.6 X10'3 (4.5-11.0)
[2022-09-30 22:23] LABS: CLARITY,URINE CLOUDY (Clear); COLOR,URINE YELLOW (Yellow); GLUCOSE, URINE >=1000 mg/dl (Neg); KETONES,URINE 15 mg/dl (Neg); LEUKOCYTE ESTERASE ,URINE TRACE (Neg); NITRITES, URINE NEGATIVE (Neg); OCCULT BLOOD,URINE MODERATE (Neg); PH,URINE 5.5 (4.8-8.0); PROTEIN,URINE 30 mg/dl (Neg); UROBILINOGEN,URINE 0.2 E.U/dL (0.2-1.0)
[2022-09-30 22:24] LABS: ALANINE AMINOTRANSFERASE 14 U/L (12-78); ALBUMIN 3.4 G/DL (3.4-5.0); ALBUMIN/GLOBULIN RATIO 0.8 (1.1-1.5); ALKALINE PHOSPHATASE 106 IU/L (46-116); ANION GAP 10 (8-16); ASPARTATE AMINO TRANSFERASE 14 U/L (10-37); BILIRUBIN,TOTAL 0.9 MG/DL (0.1-1.0); BLOOD UREA NITROGEN 36 MG/DL (7-18); BUN/CREATININE RATIO 22.2 (6.6-38.0); CHLORIDE 90 MMOL/L (99-107); CREATININE 1.62 MG/DL (0.40-0.90); POTASSIUM 4.5 MMOL/L (3.5-5.1); SODIUM 126 MMOL/L (135-145); TOTAL CARBON DIOXIDE 25.6 MMOL/L (24-32); TOTAL PROTEIN 7.6 G/DL (6.4-8.2); eGFR 31 ML/MIN
[2022-09-30 22:30] LABS: GLUCOSE 597 MG/DL (70-104)
[2022-09-30 22:32] LABS: UA COLLECTION TYPE FOLEY CATH
[2022-09-30 22:43] LABS: BACTERIA,URINE 2+ /HPF (Neg); RBC,URINE 20-50 /HPF (0-2); SQUAMOUS EPITHELIAL CELL,UR FEW /LPF (FEW); TRANSITIONAL EPI CELLS,URINE FEW /HPF; WBC CLUMPS,URINE MODERATE /HPF (NEGATIVE); WBC,URINE TNTC /HPF (0-4)
[2022-09-30] MEDS ORDERED: normal saline 1000ml 1,000 ML IV ONE (23:05)
[2022-09-30] MEDS ORDERED: CefTRIAXone/D5W-Rocephin 1gm 50 ML IV ONE (23:05)
[2022-10-01 01:32] LABS: ALANINE AMINOTRANSFERASE < 6 U/L (12-78); ALBUMIN 2.7 G/DL (3.4-5.0); ALBUMIN/GLOBULIN RATIO 0.8 (1.1-1.5); ALKALINE PHOSPHATASE 84 IU/L (46-116); ANION GAP 11 (8-16); ASPARTATE AMINO TRANSFERASE 10 U/L (10-37); BILIRUBIN,TOTAL 0.7 MG/DL (0.1-1.0); BLOOD UREA NITROGEN 31 MG/DL (7-18); BUN/CREATININE RATIO 22.1 (6.6-38.0); CALCIUM 8.5 MG/DL (8.5-10.1); CHLORIDE 97 MMOL/L (99-107); POTASSIUM 4.1 MMOL/L (3.5-5.1); SODIUM 131 MMOL/L (135-145); TOTAL CARBON DIOXIDE 23.4 MMOL/L (24-32); TOTAL PROTEIN 6.2 G/DL (6.4-8.2); eGFR 36 ML/MIN
[2022-10-01 01:34] LABS: GLUCOSE 476 MG/DL (70-104)
[2022-10-01] MEDS ORDERED: insulin regular, human 10 units/0.1 ml syringe IV ONE (03:05)
[2022-10-01] MEDS ORDERED: CEPH-585 PO (05:31)
[2022-10-01 05:46] VITALS: BP 120/62
== END 2022-10-01 05:48 | disposition home or self-care (01) ==
LOC: ER 18:56
DX: N39.0 Urinary tract infection, site not specified (principal); E11.65 Type 2 diabetes mellitus with hyperglycemia; Z88.1 Allergy status to other antibiotic agents; Z88.8 Allergy status to other drugs, medicaments and biological substances; Z87.440 Personal history of urinary (tract) infections; Z79.4 Long term (current) use of insulin; Z79.2 Long term (current) use of antibiotics; Z79.899 Other long term (current) drug therapy
CPT/HCPCS: 36415; 71045; 80053; 81001; 82948; 83605; 84145; 85025; 87040; 87088; 93005; 96361; 96365; 96375; 99285; J0696; J1815; J2405; J7030

== ENCOUNTER 2022-10-13 13:54 | Emergency (ER) | payer MEDICARE ==
[~2022-10-13] VITALS: Ht 172.7 cm; Wt 79.0 kg
[~2022-10-13 13:54] MED LIST changes: +CEPH-585 PO
[2022-10-13] MEDS ORDERED: cephalexin 500mg capsule PO ONE (15:40)
[2022-10-13 16:25] LABS: CLARITY,URINE CLOUDY (Clear); COLOR,URINE STRAW (Yellow); GLUCOSE, URINE >=1000 mg/dl (Neg); KETONES,URINE 15 mg/dl (Neg); LEUKOCYTE ESTERASE ,URINE SMALL (Neg); OCCULT BLOOD,URINE MODERATE (Neg); PROTEIN,URINE 100 mg/dl (Neg); UROBILINOGEN,URINE 0.2 E.U/dL (0.2-1.0)
[2022-10-13 16:51] LABS: NITRITES, URINE NEGATIVE (Neg); UA COLLECTION TYPE FOLEY CATH
[2022-10-13] MEDS ORDERED: CEPH250T PO (17:00)
[2022-10-13 17:09] LABS: SQUAMOUS EPITHELIAL CELL,UR FEW /LPF (FEW); WBC,URINE TNTC /HPF (0-4)
[2022-10-13 17:10] LABS: MUCUS STRANDS NONE SEEN /LPF (Neg); TRANSITIONAL EPI CELLS,URINE FEW /HPF
[2022-10-13 17:12] LABS: BACTERIA,URINE 1+ /HPF (Neg)
[2022-10-13 17:21] LABS: WBC CLUMPS,URINE MANY /HPF (NEGATIVE)
[2022-10-13 17:40] VITALS: BP 132/66
== END 2022-10-13 17:42 | disposition home or self-care (01) ==
LOC: ER 13:54
DX: T83.9XXA Unspecified complication of genitourinary prosthetic device, implant and graft, initial encounter (principal); N39.0 Urinary tract infection, site not specified; R30.9 Painful micturition, unspecified; E11.9 Type 2 diabetes mellitus without complications; Z87.440 Personal history of urinary (tract) infections; Z88.1 Allergy status to other antibiotic agents; Z88.8 Allergy status to other drugs, medicaments and biological substances; Z79.2 Long term (current) use of antibiotics; Z79.4 Long term (current) use of insulin; Z79.899 Other long term (current) drug therapy; Y84.6 Urinary catheterization as the cause of abnormal reaction of the patient, or of later complication, without mention of misadventure at the time of the procedure
CPT/HCPCS: 51702; 81001; 87088; 99283; 99284

== ENCOUNTER 2022-10-13 19:30 | Emergency (ER) | payer MEDICARE ==
[~2022-10-13] VITALS: Ht 172.7 cm; Wt 79.1 kg
[~2022-10-13 19:30] MED LIST changes: +CEPH250T PO
[2022-10-13 19:50] VITALS: BP 139/73
--- NOTE | 2022-10-13 22:22 | NUR ---
RN instilled 17 CC NS into hernandez cath balloon.
== END 2022-10-13 22:47 | disposition home or self-care (01) ==
LOC: ER 19:31
DX: T83.038A Leakage of other urinary catheter, initial encounter (principal); E11.9 Type 2 diabetes mellitus without complications; Z87.440 Personal history of urinary (tract) infections; Z88.1 Allergy status to other antibiotic agents; Z88.8 Allergy status to other drugs, medicaments and biological substances; Z79.2 Long term (current) use of antibiotics; Z79.4 Long term (current) use of insulin; Z79.899 Other long term (current) drug therapy; Y83.8 Other surgical procedures as the cause of abnormal reaction of the patient, or of later complication, without mention of misadventure at the time of the procedure
CPT/HCPCS: 99281

== ENCOUNTER 2022-12-08 22:00 | Emergency (ER) | payer MEDICARE ==
[~2022-12-08] VITALS: Ht 172.7 cm; Wt 76.4 kg
[~2022-12-08 22:00] MED LIST changes: -CEPH250T PO
[2022-12-08] MEDS ORDERED: proparacaine 0.5% ophthalmic drops 15ml EACHEYE ONE (23:10)
[2022-12-08] MEDS ORDERED: COROS EACHEYE (23:44)
[2022-12-08] MEDS ORDERED: neomy sulf/polymyx B sulf/HC 7.5ml ophthalmic suspension EACHEYE ONE (23:45)
[2022-12-09] MEDS ORDERED: neomycin/polymyxn B/dexameth ophth suspension 5ml EACHEYE SCH (00:28)
[2022-12-09 01:02] VITALS: BP 135/87
== END 2022-12-09 01:03 | disposition home or self-care (01) ==
LOC: ER 22:02
DX: S05.02XA Injury of conjunctiva and corneal abrasion without foreign body, left eye, initial encounter (principal); S05.01XA Injury of conjunctiva and corneal abrasion without foreign body, right eye, initial encounter; E11.9 Type 2 diabetes mellitus without complications; G89.29 Other chronic pain; M54.50 Low back pain, unspecified; Z88.1 Allergy status to other antibiotic agents; Z88.8 Allergy status to other drugs, medicaments and biological substances; Z91.041 Radiographic dye allergy status; Z88.5 Allergy status to narcotic agent; X58.XXXA Exposure to other specified factors, initial encounter; Y93.89 Activity, other specified; Y92.89 Other specified places as the place of occurrence of the external cause; Y99.8 Other external cause status
CPT/HCPCS: 99283; J7040

== ENCOUNTER 2024-01-26 17:26 | Emergency (ER) | payer MEDICARE ==
[~2024-01-26] VITALS: Ht 172.7 cm; Wt 77.7 kg
[~2024-01-26 17:26] MED LIST changes: -CEPH-585 PO; +COROS EACHEYE; -OXYB5TAB16 PO; +OXYB5TAB21 PO
[2024-01-26 17:38] VITALS: TEMP 97.8
[2024-01-26 18:27] LABS: BASOPHILS # (AUTO) 0.1 X10'3 (0-0.2); EOSINOPHILS # (AUTO) 0.2 X10'3 (0-0.9); EOSINOPHILS % (AUTO) 2.6 % (0-6); HEMATOCRIT 39.1 % (35.0-45.0); HEMOGLOBIN 13.1 g/dl (12.0-16.0); LYMPHOCYTES # (AUTO) 2.7 X10'3 (1.1-4.8); LYMPHOCYTES % (AUTO) 29.8 % (21-51); MEAN CORPUSCULAR HEMOGLOBIN 28.7 PG (27.0-31.0); MEAN CORPUSCULAR HGB CONC 33.5 g/dL (33.0-36.5); MEAN CORPUSCULAR VOLUME 85.7 FL (78-98); MEAN PLATELET VOLUME 7.4 FL (7.4-10.4); MONOCYTES # (AUTO) 0.9 X10'3 (0-0.9); NEUTROPHILS # (AUTO) 5.1 X10'3 (1.8-7.7); NEUTROPHILS % (AUTO) 56.6 % (42-75); PLATELET COUNT 426 X10'3 (140-440); RED BLOOD COUNT 4.56 X10'6 (4.20-5.60); WHITE BLOOD COUNT 9.1 X10'3 (4.5-11.0)
[2024-01-26] MEDS: acetaminophen 325mg tablet PO ONE (18:38)
[2024-01-26 18:49] LABS: ALBUMIN 2.9 G/DL (3.4-5.0); ANION GAP 7 (8-16); BLOOD UREA NITROGEN 15 MG/DL (7-18); BUN/CREATININE RATIO 13.2 (10.0-20.0); CALCIUM 7.7 MG/DL (8.5-10.1); CHLORIDE 107 MMOL/L (99-107); CREATININE 1.14 MG/DL (0.40-0.90); GLUCOSE 98 MG/DL (70-104); SODIUM 139 MMOL/L (135-145); TOTAL CARBON DIOXIDE 24.8 MMOL/L (24-32); eCRCL 41 ML/MIN; eGFR 46 ML/MIN
[2024-01-26 19:27] LABS: BILIRUBIN,URINE NEGATIVE (Neg); CLARITY,URINE CLOUDY (Clear); COLOR,URINE YELLOW (Yellow); GLUCOSE, URINE NEGATIVE (Neg); KETONES,URINE NEGATIVE (Neg); LEUKOCYTE ESTERASE ,URINE SMALL (Neg); NITRITES, URINE POSITIVE (Neg); OCCULT BLOOD,URINE SMALL (Neg); PH,URINE 5.5 (4.8-8.0); PROTEIN,URINE NEGATIVE (Neg); UROBILINOGEN,URINE 0.2 E.U/dL (0.2-1.0)
[2024-01-26 19:45] LABS: UA COLLECTION TYPE CLN CATCH MIDSTREAM
[2024-01-26 19:47] LABS: WBC,URINE TNTC /HPF (0-4)
[2024-01-26 19:48] LABS: BACTERIA,URINE 3+ /HPF (Neg); MUCUS STRANDS FEW /LPF (Neg); RENAL CELLS, URINE FEW /HPF; SQUAMOUS EPITHELIAL CELL,UR FEW /LPF (FEW); TRANSITIONAL EPI CELLS,URINE MODERATE /HPF
[2024-01-26 20:16] VITALS: BP 158/63
[2024-01-26] MEDS ORDERED: CEPH-585 PO (20:33)
[2024-01-26] MEDS: cephalexin 250mg capsule PO ONE (20:48)
[2024-01-26 21:18] VITALS: PULSE 80; RESP 16; O2SAT 98
== END 2024-01-26 21:19 | disposition home or self-care (01) ==
LOC: ER 17:26
DX: E11.649 Type 2 diabetes mellitus with hypoglycemia without coma (principal); N39.0 Urinary tract infection, site not specified; Z91.040 Latex allergy status; Z88.1 Allergy status to other antibiotic agents; Z88.5 Allergy status to narcotic agent; Z88.8 Allergy status to other drugs, medicaments and biological substances; Z79.899 Other long term (current) drug therapy; Z79.84 Long term (current) use of oral hypoglycemic drugs
CPT/HCPCS: 36415; 80048; 81001; 82948; 84484; 85025; 99283

== ENCOUNTER 2024-02-07 21:45 | Inpatient (IN) | payer MEDICARE ==
[~2024-02-07] VITALS: Ht 172.7 cm; Wt 77.7 kg
[~2024-02-07 21:45] MED LIST changes: +CEPH-585 PO
[2024-02-07 22:09] LABS: BASOPHILS # (AUTO) 0.1 X10'3 (0-0.2); BASOPHILS % (AUTO) 1.1 % (0-1); EOSINOPHILS # (AUTO) 0.1 X10'3 (0-0.9); EOSINOPHILS % (AUTO) 0.6 % (0-6); HEMATOCRIT 43.8 % (35.0-45.0); HEMOGLOBIN 14.7 g/dl (12.0-16.0); LYMPHOCYTES # (AUTO) 2.9 X10'3 (1.1-4.8); LYMPHOCYTES % (AUTO) 28.7 % (21-51); MEAN CORPUSCULAR HEMOGLOBIN 28.6 PG (27.0-31.0); MEAN CORPUSCULAR HGB CONC 33.5 g/dL (33.0-36.5); MEAN CORPUSCULAR VOLUME 85.4 FL (78-98); MEAN PLATELET VOLUME 7.5 FL (7.4-10.4); MONOCYTES # (AUTO) 0.5 X10'3 (0-0.9); MONOCYTES % (AUTO) 4.9 % (2-12); NEUTROPHILS # (AUTO) 6.6 X10'3 (1.8-7.7); NEUTROPHILS % (AUTO) 64.7 % (42-75); PLATELET COUNT 485 X10'3 (140-440); RED BLOOD COUNT 5.13 X10'6 (4.20-5.60); RED CELL DISTRIBUTION WIDTH 14.1 % (11.5-14.5); WHITE BLOOD COUNT 10.2 X10'3 (4.5-11.0)
[2024-02-07 22:24] LABS: ALANINE AMINOTRANSFERASE 14 U/L (12-78); ALBUMIN 3.2 G/DL (3.4-5.0); ALBUMIN/GLOBULIN RATIO 0.8 (1.1-1.5); ALKALINE PHOSPHATASE 71 IU/L (46-116); ANION GAP 10 (8-16); ASPARTATE AMINO TRANSFERASE 11 U/L (10-37); BILIRUBIN,TOTAL 1.6 MG/DL (0.1-1.0); BLOOD UREA NITROGEN 21 MG/DL (7-18); BUN/CREATININE RATIO 16.8 (10.0-20.0); CALCIUM 7.9 MG/DL (8.5-10.1); CHLORIDE 100 MMOL/L (99-107); CREATININE 1.25 MG/DL (0.40-0.90); GLUCOSE 251 MG/DL (70-104); POTASSIUM 4.1 MMOL/L (3.5-5.1); SODIUM 133 MMOL/L (135-145); TOTAL CARBON DIOXIDE 22.8 MMOL/L (24-32); TOTAL PROTEIN 7.2 G/DL (6.4-8.2); eCRCL 37 ML/MIN; eGFR 41 ML/MIN
[2024-02-07 22:31] LABS: PRO BRAIN NATRIURETIC PEPTIDE 65 PG/ML (0-450)
[2024-02-07 22:34] LABS: BILIRUBIN,URINE NEGATIVE (Neg); CLARITY,URINE CLOUDY (Clear); COLOR,URINE YELLOW (Yellow); GLUCOSE, URINE 100 mg/dl (Neg); KETONES,URINE 15 mg/dl (Neg); LEUKOCYTE ESTERASE ,URINE SMALL (Neg); NITRITES, URINE NEGATIVE (Neg); OCCULT BLOOD,URINE SMALL (Neg); PROTEIN,URINE 30 mg/dl (Neg); UROBILINOGEN,URINE 0.2 E.U/dL (0.2-1.0)
[2024-02-07 22:56] LABS: UA COLLECTION TYPE NON-SPECIFIED
[2024-02-07 22:57] LABS: WBC,URINE TNTC /HPF (0-4)
[2024-02-07 22:58] LABS: BACTERIA,URINE 2+ /HPF (Neg); RBC,URINE 20-50 /HPF (0-2); SQUAMOUS EPITHELIAL CELL,UR FEW /LPF (FEW)
[2024-02-07 22:59] LABS: FINE GRANULAR CAST 0-3 /LPF (NEGATIVE); RENAL CELLS, URINE FEW /HPF; TRANSITIONAL EPI CELLS,URINE FEW /HPF
[2024-02-07] MEDS: acetaminophen 325mg tablet PO ONE (23:28)
[2024-02-08] MEDS: CefTRIAXone/D5W-Rocephin 1gm 50 ML IV ONE (02:02)
[2024-02-08] MEDS ORDERED: calcium (02:15)
[2024-02-08] MEDS ORDERED: INSU200I4 SQ (02:15)
[2024-02-08] MEDS ORDERED: CHOL50004 PO (02:15)
[2024-02-08] MEDS: cloNIDine 0.1 mg tablet PO ONE (03:10)
[2024-02-08] MEDS: aspirin 325mg tablet, delayed-release (Ecotrin) PO ONE (03:23)
[2024-02-08] MEDS ORDERED: mag hydrox/Alum hydrox/simeth 30ml oral suspension PO PRN (04:15)
[2024-02-08] MEDS ORDERED: magnesium Cl slow-release 64mg tablet PO PRN (04:15)
[2024-02-08] MEDS ORDERED: ondansetron/PF 4mg/2ml inj IV PRN (04:15)
[2024-02-08] MEDS ORDERED: magnesium 4gm in 100ml NS 100 ML IV PRN (04:15)
[2024-02-08] MEDS ORDERED: HYDROcodone/acetaminophen 5mg/325mg tablet PO PRN (04:15)
[2024-02-08] MEDS ORDERED: potassium Cl 40MEQ/1/2NS 520ml 520 ML IV PRN (04:15)
[2024-02-08] MEDS ORDERED: acetaminophen 325mg tablet PO PRN (04:15)
[2024-02-08] MEDS ORDERED: magnesium 2GM in 50ml NS 50 ML IV PRN (04:15)
[2024-02-08] MEDS ORDERED: magnesium hydroxide 30ml (MOM) UD suspension PO PRN (04:15)
[2024-02-08] MEDS ORDERED: potassium Cl 20 mEq SR tablet PO PRN ×2 (04:15)
[2024-02-08] MEDS: docusate sod 100mg capsule PO SCH (08:00)
[2024-02-08] MEDS: K and/or MAG REPLACEMENT MC SCH (08:00)
[2024-02-08] MEDS ORDERED: CALCIUM 600 MG SCH (08:00)
[2024-02-08] MEDS: duloxetine 30mg CAPSULE.DR PO SCH (08:34)
[2024-02-08] MEDS: atorvastatin 20mg tablet PO SCH (08:34)
[2024-02-08] MEDS: thyroid, pork 30mg tablet PO SCH (08:35)
[2024-02-08] MEDS: aspirin 81mg tab.chew PO SCH (08:35)
[2024-02-08] MEDS: cholecalciferol (vitamin D3) 1,000 unit (25mcg) tablet PO SCH (08:36)
[2024-02-08] MEDS: heparin, porcine 5000 units/ml vial SQ SCH (08:38)
[2024-02-08] MEDS: CefTRIAXone/D5W-Rocephin 1gm 50 ML IV SCH (08:38)
[2024-02-08 08:53] LABS: CHOL/HDL RATIO 2.8 (0.00-4.99); CHOLESTEROL 270 MG/DL (0-200); HDL CHOLESTEROL 95 MG/DL (35-60); LDL CHOLESTEROL 160 MG/DL (50-100); MAGNESIUM 2.1 MG/DL (1.5-2.4); THYROID STIMULATING HORMONE 4.04 ulU/ml (0.34-4.50); TRIGLYCERIDES 77 MG/DL (20-135)
[2024-02-08] MEDS ORDERED: glucagon, human recombinant 1mg kit SUBCUT PRN (10:20)
[2024-02-08] MEDS ORDERED: dextrose 50%-water 50ml dispensing syringe IV PRN ×2 (10:20)
[2024-02-08] MEDS ORDERED: DEXTROSE 15 GM of carb/4 tabs (each vial/BOTTLE has 4 tablets) PO PRN ×2 (10:20)
[2024-02-08] MEDS: insulin Lispro (HumaLOG) vial - multi-dose SQ SCH (13:21)
[2024-02-08] MEDS: insulin glargine (Lantus) pen - multi-dose SQ SCH (21:00)
[2024-02-08 23:55] VITALS: BP 136/70; PULSE 80; RESP 15; TEMP 98.5; O2SAT 97
[2024-02-08 23:56] VITALS: RESP 17; O2SAT 97
[2024-02-09 06:00] VITALS: BP 117/66; PULSE 83; RESP 14; TEMP 98.8; O2SAT 94
[2024-02-09 07:30] LABS: BASOPHILS # (AUTO) 0.1 X10'3 (0-0.2); BASOPHILS % (AUTO) 0.6 % (0-1); EOSINOPHILS # (AUTO) 0.2 X10'3 (0-0.9); EOSINOPHILS % (AUTO) 2.2 % (0-6); HEMATOCRIT 38.6 % (35.0-45.0); HEMOGLOBIN 12.7 g/dl (12.0-16.0); LYMPHOCYTES # (AUTO) 2.2 X10'3 (1.1-4.8); LYMPHOCYTES % (AUTO) 24.8 % (21-51); MEAN CORPUSCULAR HEMOGLOBIN 28.2 PG (27.0-31.0); MEAN CORPUSCULAR HGB CONC 32.9 g/dL (33.0-36.5); MEAN CORPUSCULAR VOLUME 85.6 FL (78-98); MEAN PLATELET VOLUME 7.9 FL (7.4-10.4); MONOCYTES # (AUTO) 0.7 X10'3 (0-0.9); MONOCYTES % (AUTO) 7.4 % (2-12); NEUTROPHILS # (AUTO) 5.7 X10'3 (1.8-7.7); PLATELET COUNT 386 X10'3 (140-440); RED BLOOD COUNT 4.51 X10'6 (4.20-5.60); RED CELL DISTRIBUTION WIDTH 13.7 % (11.5-14.5); WHITE BLOOD COUNT 8.8 X10'3 (4.5-11.0)
[2024-02-09 08:00] VITALS: RESP 16; O2SAT 95
[2024-02-09 08:01] LABS: ALANINE AMINOTRANSFERASE 11 U/L (12-78); ALBUMIN 2.7 G/DL (3.4-5.0); ALBUMIN/GLOBULIN RATIO 0.8 (1.1-1.5); ALKALINE PHOSPHATASE 63 IU/L (46-116); ANION GAP 9 (8-16); ASPARTATE AMINO TRANSFERASE 11 U/L (10-37); BILIRUBIN,TOTAL 1.3 MG/DL (0.1-1.0); BLOOD UREA NITROGEN 19 MG/DL (7-18); BUN/CREATININE RATIO 18.8 (10.0-20.0); CALCIUM 7.6 MG/DL (8.5-10.1); CHLORIDE 103 MMOL/L (99-107); CREATININE 1.01 MG/DL (0.40-0.90); GLUCOSE 212 MG/DL (70-104); MAGNESIUM 2.2 MG/DL (1.5-2.4); POTASSIUM 4.1 MMOL/L (3.5-5.1); SODIUM 137 MMOL/L (135-145); TOTAL CARBON DIOXIDE 25.1 MMOL/L (24-32); TOTAL PROTEIN 6.3 G/DL (6.4-8.2); eCRCL 46 ML/MIN; eGFR 53 ML/MIN
[2024-02-09 10:00] VITALS: BP 130/61; PULSE 81; RESP 16; TEMP 98.6; O2SAT 94
[2024-02-09 19:00] VITALS: BP_SYST 155; BP_SYST 182; BP_DIAS 64; BP_DIAS 67; PULSE 80; RESP 16; RESP 18; TEMP 97.9; TEMP 98.1; O2SAT 97; O2SAT 98
[2024-02-09 20:00] VITALS: RESP 18; O2SAT 98
[2024-02-09 23:16] VITALS: BP 155/64; PULSE 80; RESP 16; TEMP 98.1; O2SAT 97
[2024-02-10 01:45] VITALS: BP 134/55; PULSE 71; RESP 14; TEMP 97.1; O2SAT 94
[2024-02-10 06:00] VITALS: BP 155/68; PULSE 77; RESP 14; TEMP 97.9; O2SAT 97
[2024-02-10 06:34] LABS: BASOPHILS % (AUTO) 0.7 % (0-1); EOSINOPHILS # (AUTO) 0.3 X10'3 (0-0.9); EOSINOPHILS % (AUTO) 4.3 % (0-6); HEMATOCRIT 40.4 % (35.0-45.0); HEMOGLOBIN 13.9 g/dl (12.0-16.0); LYMPHOCYTES # (AUTO) 2.1 X10'3 (1.1-4.8); MEAN CORPUSCULAR HEMOGLOBIN 29.2 PG (27.0-31.0); MEAN CORPUSCULAR HGB CONC 34.4 g/dL (33.0-36.5); MEAN CORPUSCULAR VOLUME 84.9 FL (78-98); MEAN PLATELET VOLUME 7.5 FL (7.4-10.4); MONOCYTES # (AUTO) 0.6 X10'3 (0-0.9); MONOCYTES % (AUTO) 8.9 % (2-12); NEUTROPHILS # (AUTO) 3.7 X10'3 (1.8-7.7); NEUTROPHILS % (AUTO) 55.1 % (42-75); PLATELET COUNT 297 X10'3 (140-440); RED BLOOD COUNT 4.75 X10'6 (4.20-5.60); RED CELL DISTRIBUTION WIDTH 13.9 % (11.5-14.5); WHITE BLOOD COUNT 6.7 X10'3 (4.5-11.0)
[2024-02-10 06:57] LABS: ANION GAP 8 (8-16); BILIRUBIN,TOTAL 1.1 MG/DL (0.1-1.0); BLOOD UREA NITROGEN 17 MG/DL (7-18); BUN/CREATININE RATIO 15.6 (10.0-20.0); CALCIUM 8.2 MG/DL (8.5-10.1); CHLORIDE 106 MMOL/L (99-107); CREATININE 1.09 MG/DL (0.40-0.90); GLUCOSE 181 MG/DL (70-104); MAGNESIUM 2.1 MG/DL (1.5-2.4); POTASSIUM 4.6 MMOL/L (3.5-5.1); SODIUM 140 MMOL/L (135-145); TOTAL CARBON DIOXIDE 25.8 MMOL/L (24-32); TOTAL PROTEIN 6.7 G/DL (6.4-8.2); eCRCL 43 ML/MIN; eGFR 49 ML/MIN
[2024-02-10 06:58] LABS: ALANINE AMINOTRANSFERASE 15 U/L (12-78); ALBUMIN 2.9 G/DL (3.4-5.0); ALBUMIN/GLOBULIN RATIO 0.8 (1.1-1.5); ALKALINE PHOSPHATASE 63 IU/L (46-116); ASPARTATE AMINO TRANSFERASE 17 U/L (10-37)
[2024-02-10 10:00] VITALS: BP 149/67; PULSE 80; RESP 15; TEMP 97.3; O2SAT 96
[2024-02-10 18:00] VITALS: BP 186/75; PULSE 83; RESP 18; TEMP 97.7; O2SAT 96
[2024-02-10 22:00] VITALS: BP_SYST 168; BP_SYST 186; BP_DIAS 76; BP_DIAS 84; PULSE 80; RESP 17; TEMP 98; O2SAT 94
[2024-02-11 01:25] VITALS: BP 154/76
[2024-02-11 06:00] VITALS: BP 168/70; PULSE 77; RESP 16; TEMP 97.9; O2SAT 94
[2024-02-11 07:33] LABS: BASOPHILS # (AUTO) 0.1 X10'3 (0-0.2); EOSINOPHILS # (AUTO) 0.3 X10'3 (0-0.9); EOSINOPHILS % (AUTO) 3.7 % (0-6); HEMATOCRIT 43.1 % (35.0-45.0); HEMOGLOBIN 14.7 g/dl (12.0-16.0); LYMPHOCYTES # (AUTO) 2.6 X10'3 (1.1-4.8); LYMPHOCYTES % (AUTO) 30.8 % (21-51); MEAN CORPUSCULAR HEMOGLOBIN 28.9 PG (27.0-31.0); MEAN CORPUSCULAR VOLUME 84.9 FL (78-98); MEAN PLATELET VOLUME 7.5 FL (7.4-10.4); MONOCYTES # (AUTO) 0.7 X10'3 (0-0.9); MONOCYTES % (AUTO) 8.1 % (2-12); NEUTROPHILS # (AUTO) 4.7 X10'3 (1.8-7.7); NEUTROPHILS % (AUTO) 56.4 % (42-75); PLATELET COUNT 461 X10'3 (140-440); RED BLOOD COUNT 5.07 X10'6 (4.20-5.60); RED CELL DISTRIBUTION WIDTH 13.8 % (11.5-14.5); WHITE BLOOD COUNT 8.4 X10'3 (4.5-11.0)
[2024-02-11 07:55] LABS: ALANINE AMINOTRANSFERASE 14 U/L (12-78); ALBUMIN 2.9 G/DL (3.4-5.0); ALBUMIN/GLOBULIN RATIO 0.7 (1.1-1.5); ALKALINE PHOSPHATASE 70 IU/L (46-116); ANION GAP 11 (8-16); ASPARTATE AMINO TRANSFERASE 14 U/L (10-37); BLOOD UREA NITROGEN 22 MG/DL (7-18); BUN/CREATININE RATIO 19.6 (10.0-20.0); CALCIUM 8.6 MG/DL (8.5-10.1); CHLORIDE 103 MMOL/L (99-107); CREATININE 1.12 MG/DL (0.40-0.90); GLUCOSE 172 MG/DL (70-104); SODIUM 138 MMOL/L (135-145); TOTAL CARBON DIOXIDE 23.8 MMOL/L (24-32); eCRCL 42 ML/MIN; eGFR 47 ML/MIN
[2024-02-11 10:00] VITALS: BP 153/66; PULSE 77; RESP 16; TEMP 97.1; O2SAT 97
[2024-02-11] MEDS ORDERED: ASPI81TA53 PO (10:10)
== END 2024-02-11 12:14 | DRG 71 ==
LOC: ER 21:46 → ED HOLD 02-08 04:22 → ORTHO 4S 02-08 23:30
PROVIDERS: ADMIT Internal Medicine Critical Care Medicine; ATTEND Family Medicine
PROC: BW291ZZ Computerized Tomography (CT Scan) of Head and Neck using Low Osmolar Contrast (ICD-10-PCS; principal; 2024-02-07)
DX: I67.2 Cerebral atherosclerosis (principal); G45.9 Transient cerebral ischemic attack, unspecified; N39.0 Urinary tract infection, site not specified; G89.4 Chronic pain syndrome; E78.5 Hyperlipidemia, unspecified; E11.9 Type 2 diabetes mellitus without complications; E03.9 Hypothyroidism, unspecified; M54.9 Dorsalgia, unspecified; Z88.5 Allergy status to narcotic agent; Z88.8 Allergy status to other drugs, medicaments and biological substances; Z91.040 Latex allergy status; Z79.4 Long term (current) use of insulin; Z79.899 Other long term (current) drug therapy; Z86.73 Personal history of transient ischemic attack (TIA), and cerebral infarction without residual deficits; Z85.07 Personal history of malignant neoplasm of pancreas
CPT/HCPCS: 36415; 70450; 70496; 70498; 70551; 71045; 80053; 80061; 81001; 82948; 83036; 83735; 83880; 84443; 84484; 85025; 87077; 87081; 87088; 87186; 93005; 97110; 97116; 97161; 97530; 99285; G0378; J0696; J1644; J1815